=== PATIENT | male | born 1990 | race Caucasian/White ===

== ENCOUNTER 2016-10-30 22:19 | Emergency (ER) | payer OTHER ==
[2016-10-30 22:24] VITALS: BP 131/74; PULSE 70; TEMP 97.6; BMI 29.7
--- NOTE | 2016-10-31 00:54 | PDOC ---
History of Present Illness - General History Source: Patient Exam Limitations: No Limitations - History of Present Illness Initial Comments: 10/31/16 00:55 The patient is a 25 year old male with no significant past medical history who presents to the ED with complaints of a rash since yesterday. Patient reports a painful rash in his upper right sided flank region radiating to his right upper back. He describes the rash as multiple small red blisters. Patient states the rash is progressively worsening and is now swollen. Denies new soap, laundry detergent or lotions. Denies fevers or chills. Denies any other symptoms. Social hx: Patient is a smoker ad has a chronic cough with phlegm. <Li Gong - Last Filed: 10/31/16 00:55> <Mila Almazan - Last Filed: 10/31/16 06:45> - General Chief Complaint: Rash Stated Complaint: RASH Time Seen by Provider: 10/31/16 00:34 Past History <Li Gong - Last Filed: 10/31/16 00:55> - Past Medical History Suicide Attempt (Hx): No Other medical history: denies - Immunization History Td Vaccination: Yes Immunization Up to Date: Yes - Psycho/Social/Smoking Cessation Hx Anxiety: No Suicidal Ideation: No Smoking Status: No Smoking History: Current every day smoker Years of Tobacco Use: 0 Number of Cigarettes Smoked Daily: 5 Cigars Per Day: 0 Information on smoking cessation initiated: No 'Breaking Loose' booklet given: 05/13/16 Hx Alcohol Use: No Drug/Substance Use Hx: No Substance Use Type: None <Mila Almazan - Last Filed: 10/31/16 06:45> - Past Medical History Allergies/Adverse Reactions: Allergies Allergy/AdvReac Type Severity Reaction Status Date / Time No Known Allergies Allergy Verified 10/30/16 22:24 Home Medications: Ambulatory Orders Ibuprofen [Motrin -] 600 mg PO TID #30 tablet 10/31/16 Valacyclovir HCl [Valtrex] 1,000 mg PO TID #21 tablet 10/31/16 Review of Systems - Review of Systems Able to Perform ROS?: Yes Comments:: 10/31/16 00:55 CONSTITUTIONAL: Absent: fever, chills, diaphoresis, generalized weakness, malaise, loss of appetite HEENT: Absent: rhinorrhea, nasal congestion, throat pain, throat swelling, difficulty swallowing, mouth swelling, ear pain, eye pain, visual Changes CARDIOVASCULAR: Absent: chest pain, syncope, palpitations, irregular heart rate, lightheadedness , peripheral edema RESPIRATORY: Absent: cough, shortness of breath, dyspnea with exertion, orthopnea, wheezing, stridor, hemoptysis GASTROINTESTINAL: Absent: abdominal pain, abdominal distension, nausea, vomiting, diarrhea, constipation, melena, hematochezia GENITOURINARY: Absent: dysuria, frequency, urgency, hesitancy, hematuria, flank pain, genital pain MUSCULOSKELETAL: Absent: myalgia, arthralgia, joint swelling SKIN: + rash Absent: pallor HEMATOLOGIC/IMMUNOLOGIC: Absent: easy bleeding, easy bruising, lymphadenopathy, frequent infections ENDOCRINE: Absent: unexplained weight gain, unexplained weight loss, heat intolerance, cold intolerance NEUROLOGIC: Absent: headache, focal weakness or paresthesias, dizziness, unsteady gait, seizure, mental status changes, bladder or bowel incontinence PSYCHIATRIC: Absent: anxiety, depression, suicidal or homicidal ideation, hallucinations. All Other Systems: Reviewed and Negative <Li Gong - Last Filed: 10/31/16 00:55> *Physical Exam - Vital Signs Last Vital Signs Temp Pulse Resp BP Pulse Ox 97.6 F 70 18 131/74 99 10/30/16 22:21 10/30/16 22:21 10/30/16 22:21 10/30/16 22:21 10/30/16 22:21 - Physical Exam Comments: 10/31/16 00:55 GENERAL: Well developed, well nourished. Awake and alert. No acute distress. HEENT: Normocephalic, atraumatic. PERRLA, EOMI. No conjunctival pallor. Sclera are non- icteric. Moist mucous membranes. Oropharynx is clear. NECK: Supple. Full ROM. No JVD. Carotid pulses 2+ and symmetric, without bruits. No thyromegaly. NCo lymphadenopathy. CARDIOVASCULAR: Regular rate and rhythm. No murmurs, rubs, or gallops. Distal pulses are 2+ and symmetric. PULMONARY: No evidence of respiratory distress. Lungs clear to auscultation bilaterally. No wheezing, rales or rhonchi. ABDOMINAL: Soft. Non-tender. Non-distended. No rebound or guarding. No organomegaly. Normoactive bowel sounds. MUSCULOSKELETAL Normal range of motion at all joints. No bony deformities or tenderness. No CVA tenderness. EXTREMITIES: No cyanosis. No clubbing. No edema. No calf tenderness. SKIN: + right sided herpetic blisters, very small, uniform in size, 1mml in diameter, between T6-9. Warm and dry. Normal capillary refill. No jaundice. NEUROLOGICAL: Alert, awake, appropriate. Cranial nerves 2-12 intact. No deficits to light touch and temperature in face, upper extremities and lower extremities. No motor deficits in the in face, upper extremities and lower extremities. Normoreflexic in the upper and lower extremities. Normal speech. Toes are down- going bilaterally. Gait is normal without ataxia. PSYCHIATRIC: Cooperative. Good eye contact. Appropriate mood and affect. <Li Gong - Last Filed: 10/31/16 00:55> - Vital Signs Last Vital Signs Temp Pulse Resp BP Pulse Ox 97.6 F 70 18 131/74 99 10/30/16 22:21 10/30/16 22:21 10/30/16 22:21 10/30/16 22:21 10/30/16 22:21 <Mila Almazan - Last Filed: 10/31/16 06:45> Medical Decision Making - Medical Decision Making 10/31/16 06:42 Pt comes with shingles on the right chest trunk ongoing for 2 days. Pt has pain. Multiple dermatome involvement; HIV test today is negative. Pt states that he had a cough for a few days he is refusing CXR today. He has no productive cough and he has no fever. Pt will be treated with valtrex and motrin. Home with PMD follow up. <Mila Almazan - Last Filed: 10/31/16 06:45> *DC/Admit/Observation/Transfer - Attestations Scribe Attestion: 10/31/16 00:56 Documentation prepared by Li Gong, acting as medical pathology teacher for Mila Almazan MD <Li Gong - Last Filed: 10/31/16 00:55> - Discharge Dispostion Admit: No <Mila Almazan - Last Filed: 10/31/16 06:45> Diagnosis at time of Disposition: Shingles - Discharge Dispostion Disposition: HOME Condition at time of disposition: Stable - Prescriptions Prescriptions: Ibuprofen [Motrin -] 600 mg PO TID #30 tablet Valacyclovir HCl [Valtrex] 1,000 mg PO TID #21 tablet - Referrals Referrals: Vivian Posey [Primary Care Provider] - - Patient Instructions Printed Discharge Instructions: DI for Shingles - Post Discharge Activity Work/School Note: Back to Work
[2016-10-31] MEDS ORDERED: valACYclovir HCL 1000 MG TABLET PO ONE (01:01)
[2016-10-31 02:19] LABS: HIV 1 & 2 AB NEGATIVE; HIV 1 AGp24 NEGATIVE
[2016-10-31] MEDS ORDERED: IBUPROFEN 600 MG TABLET (FP) PO ONE ×2 (02:19→02:31)
== END 2016-10-31 02:59 | disposition home or self-care (01) ==
LOC: JER 22:19
DX: B02.9 Zoster without complications (principal); F17.210 Nicotine dependence, cigarettes, uncomplicated
CPT/HCPCS: 36415; 87389; 99281-25

== ENCOUNTER 2016-11-09 13:58 | Emergency (ER) | payer OTHER ==
[2016-11-09 14:09] VITALS: BP 126/72; PULSE 74; TEMP 98; BMI 30.1
[2016-11-09] MEDS ORDERED: diphenhydrAMINE HCL 25 MG CAPSULE (FP) PO ONE ×2 (15:16→15:24)
--- NOTE | 2016-11-09 15:22 | PDOC ---
History of Present Illness - General Chief Complaint: Allergic Reaction Stated Complaint: RASH Time Seen by Provider: 11/09/16 14:45 History Source: Patient Exam Limitations: No Limitations - History of Present Illness Initial Comments: 11/09/16 15:23 11/09/16 15:25 MY Chief Complaint: rash itchy ] History of present illness: Patient is a 25-year-old male with no significant medical history here today after developing a pruritic rash yesterday to his anterior thighs that later spread to his lower legs and abdomen up to his lower chest and buttocks and medial upper arms with a few scattered on lateral arms and upper back. Patient denies any difficulty breathing or swallowing. Patient had been seen here on 10/31/2016 was started on Valtrex for 7 days due to having herpes zoster to his right flank torso area that area has healed and dries slightly hyperpigmented skin is noted in this area with no itchiness of the area. Patient denies any new cosmetics, laundry detergents, or medications. Patient reports drinking beer on Wednesday and woke up Wednesday vomited once and noticed rash on thighs. 11/09/16 16:20 11/09/16 16:21 11/09/16 16:42 Timing/Duration: getting worse Severity: moderate Associated Symptoms: reports: rash (macule rash thighs, lower extremities, lower back, buttock, abdomen, few scattered upper back, few medial upper arms ) Past History - Past Medical History Allergies/Adverse Reactions: Allergies Allergy/AdvReac Type Severity Reaction Status Date / Time No Known Allergies Allergy Verified 11/09/16 14:07 Home Medications: Ambulatory Orders Diphenhydramine HCl [Benadryl -] 25 mg PO Q4H PRN #28 capsule 11/09/16 Ranitidine [Zantac -] 150 mg PO BID #14 tablet 11/09/16 Suicide Attempt (Hx): No - Immunization History Td Vaccination: Yes Immunization Up to Date: Yes - Psycho/Social/Smoking Cessation Hx Anxiety: No Suicidal Ideation: No Smoking Status: No Smoking History: Current every day smoker Years of Tobacco Use: 0 Number of Cigarettes Smoked Daily: 5 Cigars Per Day: 0 Information on smoking cessation initiated: No 'Breaking Loose' booklet given: 05/13/16 Hx Alcohol Use: No Drug/Substance Use Hx: No Substance Use Type: None Review of Systems - Review of Systems Able to Perform ROS?: Yes Constitutional: No: Symptoms Reported Respiratory: No: Symptoms reported Cardiac (ROS): No: Symptoms Reported ABD/GI: No: Symptoms Reported : No: Symptoms Reported Musculoskeletal: No: Symptoms Reported Integumentary: Yes: Pruritus (buttock, abdomen, thighs, lower extremities, few upper medial arms, few scattered upper back), Rash (macule pruritic rash see under pruritus locations) Neurological: No: Symptoms reported *Physical Exam - Vital Signs Last Vital Signs Temp Pulse Resp BP Pulse Ox 98 F 74 18 126/72 97 11/09/16 14:07 11/09/16 14:07 11/09/16 14:07 11/09/16 14:11/09/16 14:07 - Physical Exam General Appearance: Yes: Appropriately Dressed HEENT: positive: Normal ENT Inspection Neck: negative: Lymphadenopathy (R), Lymphadenopathy (L) Respiratory/Chest: positive: Lungs Clear, Normal Breath Sounds. negative: Chest Tender, Respiratory Distress Cardiovascular: positive: Regular Rhythm, Regular Rate, S1, S2 Integumentary: positive: Rash (macule/papule rash minimally raised multiple to thighs, abdomen, buttock, lower legs, & lower back few medial upper arms, few scattered lateral arms and upper back), Other (area of slightly hyperpigmented dry skin rt. lateral flank/torso no lesions or vehicles ) Neurologic: positive: Alert, Normal Response, Responsive ED Treatment Course - LABORATORY CBC & Chemistry Diagram: 11/09/16 17:06 11/09/16 17:06 Medical Decision Making - Medical Decision Making 11/09/16 15:27 Patient is a 25-year-old male with no significant medical history here today after developing a pruritic rash yesterday to his anterior thighs that later spread to his lower legs and abdomen up to his lower chest and buttocks and medial upper arms with a few scattered on lateral arms and upper back. Patient denies any difficulty breathing or swallowing. Patient had been seen here on 11/2016 was started on Valtrex due to having herpes zoster to his right flank torso area that area has healed and dries slightly hyperpigmented skin is noted in this area with no itchiness of the area. Patient denies any new cosmetics, laundry detergents, or medications. pruritic rash PLAN: miltonl 25 mg po now than every 6 hrs prn itchiness zantac 150 mg po now than bid for 7 days 11/09/16 16:14 11/09/16 18:06 Laboratory Tests 11/09/16 11/09/16 11/09/16 17:06 17:06 17:06 WBC 8.6 RBC 5.15 Hgb 16.3 Hct 49.3 H MCV 95.6 MCH 31.6 MCHC 33.0 RDW 12.6 Plt Count 266 MPV 8.7 Neutrophils % 60.5 Lymphocytes % 21.9 Monocytes % 12.4 H Eosinophils % 4.3 Basophils % 0.9 Sodium 137 Potassium 4.3 Chloride 102 Carbon Dioxide 26 Anion Gap 9 BUN 13 Creatinine 1.0 Random Glucose 87 Calcium 9.0 Urine Color Yellow Urine Appearance Clear Urine pH 7.0 Ur Specific Rea Pending Urine Protein 1+ H Urine Glucose (UA) Negative Urine Ketones Negative Urine Blood Negative Urine Nitrite Negative Urine Bilirubin Negative Urine Urobilinogen Negative Urine RBC 2 Urine WBC 1 Urine Mucus Rare 11/09/16 19:58 throat C & S culture negative *DC/Admit/Observation/Transfer Diagnosis at time of Disposition: Pruritic rash - Discharge Dispostion Disposition: HOME Condition at time of disposition: Stable - Prescriptions Prescriptions: Diphenhydramine HCl [Benadryl -] 25 mg PO Q4H PRN #28 capsule PRN Reason: For Itching Ranitidine [Zantac -] 150 mg PO BID #14 tablet - Referrals Referrals: Vivian Posey [Primary Care Provider] - - Patient Instructions Additional Instructions: Follow up with your primary care provider within the next 2 days or sooner Return to emergency room if any difficulty breathing or swallowing or new symptoms develop Drink a lot of water Patient voiced understanding of discharge instructions and all questions were answered - Post Discharge Activity Work/School Note: Back to Work
[2016-11-09] MEDS ORDERED: RANITIDINE HCL 150 MG TABLET (FP) PO ONE (15:33)
[2016-11-09] MEDS ORDERED: RANITIDINE HCL 150 MG TABLET (FP) ONE (15:35)
[2016-11-09 17:23] LABS: BASOPHIL 0.9 % (0-2.0); EOSINOPHIL 4.3 % (0-4.5); MCH 31.6 pg (25.7-33.7); MEAN CELL VOLUME 95.6 fl (80-96); MEAN PLT VOLUME 8.7 fl (7.5-11.1); NEUTROPHILS 60.5 % (42.8-82.8); PLATELET COUNT 266 K/MM3 (134-434); RDW 12.6 % (11.9-15.9); URINE APPEARANCE CLEAR; URINE BILIRUBIN NEGATIVE (NEGATIVE); URINE BLOOD NEGATIVE (NEGATIVE); URINE COLOR YELLOW; URINE GLUCOSE (UA) NEGATIVE (NEGATIVE); URINE KETONE NEGATIVE (NEGATIVE); URINE LEUK ESTERASE NEGATIVE (NEGATIVE); URINE NITRITE NEGATIVE (NEGATIVE); URINE UROBILINOGEN NEGATIVE mg/dL (0.2-1.0); WHITE BLOOD COUNT 8.6 K/mm3 (4.0-10.0)
[2016-11-09 17:27] LABS: URINE PROTEIN 1+ (NEGATIVE)
[2016-11-09 17:29] LABS: URINE MUCUS RARE; URINE RBC 2 /hpf (0-3); URINE WBC 1 /hpf (3-5)
[2016-11-09 17:56] LABS: ANION GAP 9 (8-16); CO2 26 mmol/L (21-32); GLUCOSE,RANDOM 87 mg/dL (74-106)
== END 2016-11-09 18:30 | disposition home or self-care (01) ==
LOC: JERFT 13:58
DX: L29.8 Other pruritus (principal)
CPT/HCPCS: 36415; 80048; 81003; 81015; 85025; 87070; 87077; 87430; 99281-25

== ENCOUNTER 2019-04-30 12:42 | Emergency (ER) | payer OTHER ==
[2019-04-30 12:48] VITALS: BP 130/65; PULSE 85; TEMP 97.4; BMI 28.1
--- NOTE | 2019-04-30 13:31 | PDOC ---
History of Present Illness - General Chief Complaint: Pain Stated Complaint: NECK/BACK PAIN Time Seen by Provider: 04/30/19 13:03 History Source: Patient Exam Limitations: No Limitations Past History - Travel Traveled outside of the country in the last 30 days: No Close contact w/someone who was outside of country & ill: No - Past Medical History Allergies/Adverse Reactions: Allergies Allergy/AdvReac Type Severity Reaction Status Date / Time No Known Allergies Allergy Verified 04/30/19 12:48 Home Medications: Ambulatory Orders Sulfamethoxazole/Trimethoprim [Bactrim *Ds*] 1 each PO BID #14 tablet 12/12/17 Cyclobenzaprine HCl [Flexeril -] 10 mg PO HS #10 tablet 04/30/19 Ibuprofen 600 mg PO Q6H #30 tablet 04/30/19 COPD: No - Immunization History Td Vaccination: Yes Immunization Up to Date: Yes - Psycho Social/Smoking Cessation Hx Smoking Status: No Smoking History: Current every day smoker Years of Tobacco Use: 0 Number of Cigarettes Smoked Daily: 5 Cigars Per Day: 0 Information on smoking cessation initiated: No 'Breaking Loose' booklet given: 05/13/16 Hx Alcohol Use: No Drug/Substance Use Hx: No Substance Use Type: None Review of Systems - Review of Systems Able to Perform ROS?: Yes Comments:: 04/30/19 13:38 CONSTITUTIONAL: Absent: fever, chills, diaphoresis, generalized weakness, malaise, loss of appetite HEENT: Absent: rhinorrhea, nasal congestion, throat pain, throat swelling, difficulty swallowing, mouth swelling, ear pain, eye pain, visual Changes MUSCULOSKELETAL: Present: Neck pain Absent: arthralgia, joint swelling SKIN: Absent: rash, itching, pallor NEUROLOGIC: Absent: headache, focal weakness or paresthesias, dizziness, unsteady gait, seizure, mental status changes, bladder or bowel incontinence PSYCHIATRIC: Absent: anxiety, depression, suicidal or homicidal ideation, hallucinations. Is the patient limited Romanian proficient: No *Physical Exam - Vital Signs Last Vital Signs Temp Pulse Resp BP Pulse Ox 97.4 F L 85 18 130/65 99 04/30/19 12:45 04/30/19 12:45 04/30/19 12:45 04/30/19 12:45 04/30/19 12:45 - Physical Exam 04/30/19 13:39 GENERAL: Well developed, well nourished. Awake and alert. No acute distress. HEENT: Normocephalic, atraumatic. PERRLA, EOMI. No conjunctival pallor. Sclera are non- icteric. Moist mucous membranes. NECK: Supple. Decreased ROM with rotational movements to the left. Palpable spasm felt of the L trapezius muscle extended from the neck to the mid back. No midline tenderness. No JVD. Carotid pulses 2+ and symmetric, without bruits. No thyromegaly. No lymphadenopathy. MUSCULOSKELETAL See neck exam. Normal range of motion at all other joints. No bony deformities or tenderness. No CVA tenderness. EXTREMITIES: No cyanosis. No clubbing. No edema. No calf tenderness. SKIN: Warm and dry. Normal capillary refill. No rashes. No jaundice. NEUROLOGICAL: Alert, awake, appropriate. Cranial nerves 2-12 intact. No deficits to light touch and temperature in face, upper extremities and lower extremities. No motor deficits in the in face, upper extremities and lower extremities. Normoreflexic in the upper and lower extremities. Normal speech. Toes are down- going bilaterally. Gait is normal without ataxia. PSYCHIATRIC: Cooperative. Good eye contact. Appropriate mood and affect. Medical Decision Making - Medical Decision Making 04/30/19 13:41 The patient is a 28-year-old male no past medical history who presents to the ER today for neck pain for 2 days. He states he woke up on 04/28/19. 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 He states it hurts to move his neck to the left. Denies trauma or fever. Denies lightheadedness, dizziness, headache, numbness and tingling weakness the upper extremities. A/P: Neck pain On exam, decreased ROM with rotational movements to the left. Palpable spasm felt of the L trapezius muscle extended from the neck to the mid back. No midline tenderness. Likely a spasm of the trapezius muscle. Patient sent for x-ray X-ray shows a straightened spinal column without any evidence of fracture or decreased disc space Toradol, Flexeril and lidocaine patch given with relief of symptoms. Discharge home with orthopedic follow-up I discussed the physical exam findings, ancillary test results and final diagnoses with the patient. I answered all of the patient's questions. The patient was satisfied with the care received and felt comfortable with the discharge plan and treatment plan. The Patient agrees to follow up with the primary care physician/specialist within 24-72 hours. Return precautions were given. Discharge - Discharge Information Problems reviewed: Yes Clinical Impression/Diagnosis: Neck pain Condition: Stable Disposition: HOME - Admission No - Follow up/Referral Referrals: Tod Snider MD [Staff Physician] - - Patient Discharge Instructions Patient Printed Discharge Instructions: DI for Neck Pain Additional Instructions: You were evaluated for your neck pain today. Is most likely due to a muscle spasm. Please take the ibuprofen and Flexeril as directed for your pain. Do not drink alcohol or drive after taking the Flexeril as it may make you drowsy. You may apply warm compresses to the area. Please follow-up with orthopedics within a week if your symptoms are not improving. Return to the ER for worsening pain, fever, headache or if you have any changes in your symptoms. - Post Discharge Activity Work/Back to School Note: Back to Work
[2019-04-30] MEDS ORDERED: CYCLOBENZAPRINE HCL 10 MG TABLET (FP) PO ONE (13:34)
[2019-04-30] MEDS ORDERED: KETOROLAC TROMETHAMINE 30 MG/1 ML VIAL IM ONE (13:34)
[2019-04-30] MEDS ORDERED: LIDOCAINE 5% TOPICAL PATCH TP ONE (13:34)
[2019-04-30] MEDS ORDERED: LIDOCAINE 5% TOPICAL PATCH ONE (13:36)
[2019-04-30] MEDS ORDERED: CYCLOBENZAPRINE HCL 10 MG TABLET (FP) ONE (13:36)
[2019-04-30] MEDS ORDERED: KETOROLAC TROMETHAMINE 30 MG/1 ML VIAL ONE (13:36)
== END 2019-04-30 13:54 | disposition home or self-care (01) ==
LOC: JERFT 12:42
PROC: 3E0233Z Introduction of Anti-inflammatory into Muscle, Percutaneous Approach (ICD-10-PCS; principal; 2019-04-30)
DX: M62.838 Other muscle spasm (principal); F17.210 Nicotine dependence, cigarettes, uncomplicated
CPT/HCPCS: 72050-TC-FY; 99281-25

== ENCOUNTER 2019-05-11 11:13 | Emergency (ER) | payer OTHER ==
[2019-05-11 11:29] VITALS: BP 121/65; PULSE 66; TEMP 98; BMI 27.3
[2019-05-11] MEDS ORDERED: TETRACAINE 0.5% OPHTH SOLN 2 ML BOTTLE ONE (12:01)
[2019-05-11] MEDS ORDERED: TETRACAINE 0.5% HCL 0.6ML DROPPER.BOTTLE OS ONE (12:02)
[2019-05-11] MEDS ORDERED: FLUORESCEIN NA 1 EA STRIP OS ONE (12:02)
--- NOTE | 2019-05-11 12:18 | PDOC ---
History of Present Illness - General Chief Complaint: Eye Problem Stated Complaint: EYE INJURY Time Seen by Provider: 05/11/19 11:42 History Source: Patient Exam Limitations: Clinical Condition - History of Present Illness Initial Comments: 05/11/19 12:16 Patient with no significant past medical history present with complaint of left eye pain and irritation with redness status post having debris going to his left eye while doing yard work 2 days ago. Patient reported has been washing the eye since the incident but still Having persistent pain to the left eye. Reported no pain to right eye. Denies blurry vision, change in vision. Denies any other symptoms Is this a multiple visit Asthma Patient?: No Timing/Duration: other (2 days) Past History - Past Medical History Allergies/Adverse Reactions: Allergies Allergy/AdvReac Type Severity Reaction Status Date / Time No Known Allergies Allergy Verified 04/30/19 12:48 Home Medications: Ambulatory Orders Sulfamethoxazole/Trimethoprim [Bactrim *Ds*] 1 each PO BID #14 tablet 12/12/17 Cyclobenzaprine HCl [Flexeril -] 10 mg PO HS #10 tablet 04/30/19 Ibuprofen 600 mg PO Q6H #30 tablet 04/30/19 Ofloxacin 0.3% Ophth Soln [Ocuflox -] 2 drop OS Q6H 5 Days #1 bottle 05/11/19 COPD: No - Immunization History Td Vaccination: Yes Immunization Up to Date: Yes - Psycho Social/Smoking Cessation Hx Smoking Status: No Smoking History: Never smoked Years of Tobacco Use: 0 Have you smoked in the past 12 months: No Number of Cigarettes Smoked Daily: 5 Cigars Per Day: 0 Information on smoking cessation initiated: No 'Breaking Loose' booklet given: 05/13/16 Hx Alcohol Use: No Drug/Substance Use Hx: No Substance Use Type: None Review of Systems - Review of Systems Able to Perform ROS?: Yes Is the patient limited Nicaraguan proficient: No Constitutional: No: Chills, Fever, Malaise HEENTM: Yes: Symptoms Reported, See HPI, Eye Pain (left eye pain and redness). No: Blurred Vision, Tearing, Recent change in vision, Double Vision, Cataracts, Ear Pain, Ocular Prothesis, Ear Discharge, Nose Pain, Nose Congestion, Tinnitus , Nose Bleeding, Hearing Loss, Throat Pain, Throat Swelling, Mouth Pain, Dental Problems, Difficulty Swallowing, Mouth Swelling, Other Respiratory: No: Symptoms reported, See HPI, Cough, Orthopnea, Shortness of Breath, SOB with Exertion, SOB at Rest, Stridor, Wheezing, Productive cough, Hemoptysis, Other Cardiac (ROS): No: Symptoms Reported, See HPI, Chest Pain, Edema, Irregular Heart Rate, Lightheadedness, Palpitations, Syncope, Chest Tightness, Other ABD/GI: No: Symptoms Reported, Nausea, Vomiting Integumentary: No: Symptoms Reported Neurological: No: Symptoms reported, Headache, Dizziness All Other Systems: Reviewed and Negative *Physical Exam - Vital Signs Last Vital Signs Temp Pulse Resp BP Pulse Ox 98.0 F 66 18 121/65 100 05/11/19 11:05/11/19 11:05/11/19 11:05/11/19 11:05/11/19 11:26 - Physical Exam 05/11/19 12:15 GENERAL: Well developed, well nourished. Awake and alert. No acute distress. HEENT: Mild erythema to left conjunctiva. No corneal abrasion no scarring on exam with fluorescein stain. 20/20 visual acuity OS, OD and OU. Normocephalic, atraumatic. PERRLA, EOMI. No right conjunctival pallor. Sclera are non-icteric. Moist mucous membranes. Oropharynx is clear. NECK: Supple. Full ROM. CARDIOVASCULAR: Regular rate and rhythm. No murmurs, rubs, or gallops. Distal pulses are 2+ and symmetric. PULMONARY: No evidence of respiratory distress. MUSCULOSKELETAL Normal range of motion at all joints. SKIN: Warm and dry. Normal capillary refill. No rashes. No jaundice. NEUROLOGICAL: Alert, awake, appropriate. Gait is normal without ataxia. PSYCHIATRIC: Cooperative. Good eye contact. Appropriate mood General Appearance: Yes: Nourished, Appropriately Dressed. No: Apparent Distress ED Treatment Course - Medications Given in the ED: ED Medications Discontinued Medications Generic Name Dose Route Start Last Admin Trade Name Freq PRN Reason Stop Dose Admin Fluorescein Sodium 1 ea 05/11/19 12:02 05/11/19 12:04 Fluorets - OS 05/11/19 12:03 1 ea ONCE ONE Administration Tetracaine HCl 1 drop 05/11/19 12:02 05/11/19 12:04 Tetravisc 0.5% Eye Drops - OS 05/11/19 12:03 1 drop ONCE ONE Administration Medical Decision Making - Medical Decision Making 05/11/19 12:17 Patient with no significant past medical history present with complaint of left eye pain and irritation with redness status post having debris going to his left eye while doing yard work 2 days ago. Patient reported has been washing the eye since the incident but still Having persistent pain to the left eye. Reported no pain to right eye. Denies blurry vision, change in vision. Denies any other symptoms Exam significant for mild left conjunctival erythema with no corneals abrasion scarring on exam with fluorescein stain. Extraocular muscle intact and pupils equal reflexes light bilateral. Normal visual acuity exam. Patient stable for discharge with ofloxacin eyedrop with ophthalmology follow-up Discharge - Discharge Information Problems reviewed: Yes Clinical Impression/Diagnosis: Foreign body of left eye Qualifiers: Encounter type: initial encounter Qualified Code(s): T15.92XA - Foreign body on external eye, part unspecified, left eye, initial encounter Condition: Improved Disposition: HOME - Admission No - Additional Discharge Information Prescriptions: Ofloxacin 0.3% Ophth Soln [Ocuflox -] 2 drop OS Q6H 5 Days #1 bottle - Follow up/Referral Referrals: Claude Mejia MD [Staff Physician] - - Patient Discharge Instructions Patient Printed Discharge Instructions: DI for Corneal Foreign Body-Eye Additional Instructions: Use prescribed eyedrops as prescribed for eye pain. Follow-up referred ophthalmology if no improvement in 3 days - Post Discharge Activity
== END 2019-05-11 12:37 | disposition home or self-care (01) ==
LOC: JERFT 11:13
PROC: 4A07X0Z Measurement of Visual Acuity, External Approach (ICD-10-PCS; principal; 2019-05-11)
DX: T15.92XA Foreign body on external eye, part unspecified, left eye, initial encounter (principal); X58.XXXA Exposure to other specified factors, initial encounter; Y93.H2 Activity, gardening and landscaping; Y92.89 Other specified places as the place of occurrence of the external cause; Y99.8 Other external cause status
CPT/HCPCS: 99282-25

== ENCOUNTER 2019-12-27 09:00 | Emergency (ER) | payer OTHER ==
[2019-12-27 09:18] VITALS: BP 119/68; PULSE 58; TEMP 97.8; BMI 28.8
--- NOTE | 2019-12-27 09:44 | PDOC ---
History of Present Illness - General Chief Complaint: Allergic Reaction Stated Complaint: ALLERGIC REACTION Time Seen by Provider: 12/27/19 09:24 History Source: Patient - History of Present Illness Timing/Duration: reports: other Location: reports: generalized Respiratory Risk Factors: reports: medications Past History - Medical History Allergies/Adverse Reactions: Allergies Allergy/AdvReac Type Severity Reaction Status Date / Time No Known Allergies Allergy Verified 04/30/19 12:48 Home Medications: Ambulatory Orders Sulfamethoxazole/Trimethoprim [Bactrim *Ds*] 1 each PO BID #14 tablet 12/12/17 Cyclobenzaprine HCl [Flexeril -] 10 mg PO HS #10 tablet 04/30/19 Ibuprofen 600 mg PO Q6H #30 tablet 04/30/19 Ofloxacin 0.3% Ophth Soln [Ocuflox -] 2 drop OS Q6H 5 Days #1 bottle 05/11/19 Loratadine [Claritin -] 10 mg PO DAILY #15 tablet 12/27/19 COPD: No - Immunization History Td Vaccination: Yes Immunization Up to Date: Yes - Psycho-Social/Smoking History Smoking Status: No Smoking History: Never smoked Years of Tobacco Use: 0 Have you smoked in the past 12 months: No Number of Cigarettes Smoked Daily: 5 Cigars Per Day: 0 Information on smoking cessation initiated: No 'Breaking Loose' booklet given: 05/13/16 - Substance Abuse Hx (Audit-C & DAST Scrn) How often the patient has a drink containing alcohol: Never Score: In Men: 4 or > Positive; In Women: 3 or > Positive: 0 Screen Result (Pos requires Nsg. Audit-10AR): Negative In the last yr the pt used illegal drug/Rx for NonMed reason: No Score: Yes response is considered Positive: 0 Screen Result (Positive result requires Nsg. DAST-10): Negative Review of Systems - Review of Systems HEENTM: No: Throat Pain, Throat Swelling Respiratory: No: Shortness of Breath, Stridor, Wheezing Integumentary: Yes: Pruritus, Rash *Physical Exam - Vital Signs Last Vital Signs Temp Pulse Resp BP Pulse Ox 97.8 F 58 L 15 119/68 99 12/27/19 09:14 12/27/19 09:14 12/27/19 09:14 12/27/19 09:14 12/27/19 09:14 - Physical Exam General Appearance: Yes: Appropriately Dressed. No: Apparent Distress HEENT: positive: Normal Voice Neck: positive: Supple Respiratory/Chest: negative: Respiratory Distress Integumentary: positive: Dry, Warm, Hives (to trunk and RLE) Neurologic: positive: Fully Oriented, Alert, Normal Mood/Affect Medical Decision Making - Medical Decision Making 12/27/19 09:48 29 yo M, no known drug/food/environmental allergies, here with generalized pruritic rash that began several hours after taking omeprazole 5-6 days ago. States he has never taken omeprazole before but was given meds by his aunt after patient complained of epigastric discomfort. Patient has been taking benadryl for rash with some relief. No respiratory symptoms. Patient well-appearing and stable with hives to trunk and extremity. Dc with instructions to refrain from omeprazole and inform his PMD of possible allergic reaction to meds. To continue taking oral antihistamine as directed. Discharge - Discharge Information Problems reviewed: Yes Clinical Impression/Diagnosis: Hives Condition: Good Disposition: HOME - Additional Discharge Information Prescriptions: Loratadine [Claritin -] 10 mg PO DAILY #15 tablet - Follow up/Referral - Patient Discharge Instructions Patient Printed Discharge Instructions: DI for General Allergic Reactions, DI for Hives Additional Instructions: Take claritin as needed for itching as needed and refrain from taking omeprazole or similar meds in the future - Post Discharge Activity
== END 2019-12-27 09:50 | disposition home or self-care (01) ==
LOC: JERFT 09:00
DX: L50.0 Allergic urticaria (principal)
CPT/HCPCS: 99282-25

== ENCOUNTER 2020-09-16 06:15 | Emergency (ER) | payer OTHER ==
[2020-09-16 06:46] VITALS: BP 122/79; PULSE 74; TEMP 98.4; BMI 22.8
[2020-09-16] MEDS ORDERED: KETOROLAC TROMETHAMINE 30 MG/1 ML VIAL IM ONE (07:28)
[2020-09-16] MEDS ORDERED: KETOROLAC TROMETHAMINE 30 MG/1 ML VIAL ONE (08:00)
[2020-09-16 08:25] LABS: URINE APPEARANCE CLEAR; URINE BILIRUBIN NEGATIVE (NEGATIVE); URINE COLOR YELLOW; URINE GLUCOSE (UA) NEGATIVE (NEGATIVE); URINE KETONE NEGATIVE (NEGATIVE); URINE LEUK ESTERASE NEGATIVE (NEGATIVE); URINE NITRITE NEGATIVE (NEGATIVE); URINE PROTEIN NEGATIVE (NEGATIVE); URINE UROBILINOGEN 0.2 mg/dL (0.2-1.0)
== END 2020-09-16 09:30 | disposition home or self-care (01) ==
LOC: JER 06:15
PROC: 3E0233Z Introduction of Anti-inflammatory into Muscle, Percutaneous Approach (ICD-10-PCS; principal; 2020-09-16)
DX: M54.5 Low back pain (principal)
CPT/HCPCS: 81003; 99284-25

== ENCOUNTER 2023-03-07 15:02 | Emergency (ER) | payer OTHER ==
[2023-03-07 15:05] VITALS: BP 123/64; PULSE 100; RESP 18; TEMP 98.3; BMI 30.1
[2023-03-07] MEDS ORDERED: KETOROLAC TROMETHAMINE 30 MG/1 ML VIAL IM ONE (15:56)
[2023-03-07] MEDS ORDERED: KETOROLAC TROMETHAMINE 30 MG/1 ML VIAL ONE (16:02)
== END 2023-03-07 16:08 | disposition home or self-care (01) ==
LOC: JERFT 15:02
PROC: 3E0233Z Introduction of Anti-inflammatory into Muscle, Percutaneous Approach (ICD-10-PCS; principal; 2023-03-07)
DX: J02.0 Streptococcal pharyngitis (principal); H92.03 Otalgia, bilateral; R13.10 Dysphagia, unspecified; J39.2 Other diseases of pharynx; J35.8 Other chronic diseases of tonsils and adenoids; H66.91 Otitis media, unspecified, right ear
CPT/HCPCS: 87651; 99284-25

== ENCOUNTER 2023-05-05 04:31 | Emergency (ER) | payer OTHER ==
[2023-05-05 04:36] VITALS: BP 114/74; PULSE 63; RESP 17; TEMP 97.9; BMI 28.8
[2023-05-05] MEDS ORDERED: CLINDAMYCIN 900 MG PREMIX IVPB 900 MG/50 ML BAG IVPB ONE (04:47)
[2023-05-05] MEDS ORDERED: ACETAMINOPHEN 1000 MG/100 ML BAG IVPB ONE (04:48)
[2023-05-05] MEDS ORDERED: CLINDAMYCIN 600MG PREMIX IVPB 600 MG/50 ML BAG IVPB ONE ×2 (05:21→05:23)
[2023-05-05] MEDS ORDERED: ACETAMINOPHEN INJECTION 100 ML IVPB ONE (05:23)
[2023-05-05] MEDS ORDERED: guaiFENesin/D-METHORPHAN HB 10 ML UNIT-DOSE CUPS ONE (05:49)
[2023-05-05] MEDS ORDERED: ACETAMINOPHEN 325 MG TABLET (FP) ONE (05:49)
[2023-05-05 06:27] LABS: BASO % 0.4 % (0-2.0); EOS % 1.9 % (0-4.5); HEMATOCRIT 45.9 % (35.4-49); HEMOGLOBIN 14.9 GM/dL (11.7-16.9); LYMPH % 18.8 % (8-40); MCH 31.3 pg (25.7-33.7); MCHC 32.5 g/dl (32.0-35.9); MEAN CELL VOLUME 96.3 fl (80-96); MEAN PLT VOLUME 9.2 fl (7.5-11.1); MONO % 8.3 % (3.8-10.2); NEUT % 70.6 % (42.8-82.8); PLATELET COUNT 265 10^3/uL (134-434); RBC 4.76 M/mm3 (4.00-5.60); WHITE BLOOD COUNT 11.2 K/mm3 (4.0-10.0)
[2023-05-05 07:03] LABS: CALCIUM 9.3 mg/dL (8.5-10.1)
[2023-05-05 07:04] LABS: ALBUMIN 3.7 g/dl (3.4-5.0); BLOOD UREA NITROGEN 10.8 mg/dL (7-18)
[2023-05-05 07:07] LABS: CREATININE 0.9 mg/dL (0.55-1.3)
[2023-05-05 07:09] LABS: BILIRUBIN,TOTAL 0.6 mg/dL (0.2-1); TOT PROT 7.2 g/dl (6.4-8.2)
== END 2023-05-05 07:25 | disposition home or self-care (01) ==
LOC: JER 04:31
PROC: 3E03329 Introduction of Other Anti-infective into Peripheral Vein, Percutaneous Approach (ICD-10-PCS; principal; 2023-05-05)
PROC: 3E033NZ Introduction of Analgesics, Hypnotics, Sedatives into Peripheral Vein, Percutaneous Approach (ICD-10-PCS; 2023-05-05)
DX: R22.41 Localized swelling, mass and lump, right lower limb (principal); L03.115 Cellulitis of right lower limb
CPT/HCPCS: 36415; 80053; 85025; 87040; 99284-25